=== PATIENT | female | born 1995 | race Hispanic/Latino ===

== ENCOUNTER 2024-06-09 02:24 | Emergency (ER) | payer BC, SELFPAY ==
[2024-06-09 02:25] VITALS: BMI 31.8
[2024-06-09 02:26] VITALS: BP 157/101
[2024-06-09 02:58] VITALS: BP 130/92
--- NOTE | 2024-06-09 05:18 | ED.GENMED ---
History of Present Illness
General
Chief Complaint: Allergic Reaction
Source: patient
Exam Limitations: none
Time Seen by Provider: 06/09/24 05:05
Nursing documentation reviewed up to this point in time: agreed with
History of Present Illness
History of Present Illness:
This is a 29-year-old female with no significant past medical history complains of generalized hives located to her anterior neck that she first noticed yesterday morning upon waking. She received a facial the day prior and believes that the
patient was the cause for the hives. She was evaluated at urgent care yesterday and prescribed a Medrol Dosepak and told to take Benadryl. She admits that Benadryl temporized her hives but they continue to recur and now seem to be spreading to her
upper chest, upper back. She complains of moderate itching. She also noted dry throat and felt that her throat may be feeling thicker. She denies cough nor shortness of breath but is concerned for possible wheezing. No prior history of asthma.
No abdominal pain, no nausea nor vomiting.
She took Benadryl 50 mg prior to arrival and now admits to moderate improvement in hives but not completely resolved.
Past History
Past History
ED Past Medical History: None
ED Past Surgical History: None
Social History
Tobacco: Non-smoker
Personal:
Living: with family
Employment: Employed
Family History
Family History: Other (Noncontributory)
Phy Exam
Physical Exam
Physical Exam:
GENERAL: 29-year-old female appears her stated age, awake and alert, pleasant, appears in no acute distress. is accompanying.
EYE: anicteric
NECK: Supple, nontender, no meningismus, no significant adenopathy.
ENT: posterior pharynx is clear, oral mucosa is moist. TM clear b/l, nares patent.
CARDIAC: Regular rate and rhythm. no murmur.
LUNGS: Clear breath sounds bilaterally, no acute respiratory distress, no wheezes/rales/rhonchi
ABDOMEN: Soft, nondistended, without focal tenderness, no r/g, no cvat. normoactive BS.
NEUROLOGICAL: Alert and oriented x3, no focal neuro deficits. Gait is kidd and steady.
SKIN: Warm and dry, normal color, skin intact. Few urticarial eruptions primarily noted anterior neck as well as a few scattered urticaria to the upper back and superior upper chest.
MUSCULOSKELETAL: No C/C/E. peripheral pulses are full and equal b/l. No palpable tenderness.
PSYCH: Normal and appropriate interaction.
Course
Orders/Labs/Results
Orders:
Orders
06/09/24 05:17
Dexamethasone Sod Phosphate [Decadron] 10 mg IV NOW STA
Diphenhydramine [Benadryl] 25 mg IV NOW STA
Vital Signs
Initial and Last Documented VS:
Initial Vital Signs
Temp Pulse Resp BP Pulse Ox
97.7 F 87 18 157/101 100
06/09/24 02:26 06/09/24 02:26 06/09/24 02:26 06/09/24 02:26 06/09/24 02:26
Last Documented Vital Signs
Temp Pulse Resp BP Pulse Ox
97.7 F 87 20 127/81 100
06/09/24 02:26 06/09/24 05:34 06/09/24 05:34 06/09/24 05:34 06/09/24 05:34
MDM/Problems Addressed
Differential Diagnosis Includes:
Patient presents with acute allergic reaction, urticaria primarily to her neck, upper back and upper chest that began yesterday morning.
Urticaria has been temporized by Benadryl and Medrol Dosepak but recurrent and worsening.
Nothing in history nor exam to suggest anaphylactic/anaphylactoid symptoms.
Urticaria is improving with an oral dose of Benadryl.
Will give additional IV dose of Benadryl as well as IV dose of Decadron and recommend we increase her dose of prednisone with lengthier taper over the next week.
I also recommend she initiated daily antihistamine such as Zyrtec or Claritin once daily over the next week and along with this if hives recur she can continue to take Benadryl 50 mg every 6 hours as needed.
Encouraged to avoid contact with similar facial products in the future as I suspect this was cause for somewhat focal urticarial reaction.
Follow-up with PCP for recheck.
*Pulse Oximetry
Patient hypoxic: no
*Critical Care Note
Total Time (30-74mins, 75-104mins- exclusive of procedures): Not Applicable
ED Attending Note
-
Portions of this chart may have been created with voice recognition software.� Occasional wrong word or��sound alike� substitutions may have occurred due to the inherent limitations of voice recognition software.
Discharge Plan
Departure
Patient Disposition: Home (Routine Discharge)
Date of Disposition: 06/09/24
Time of Disposition: 05:18
Patient with high blood pressure during this ER visit?: Yes
Condition: Good
Discharge Problem:
Acute allergic reaction
Instructions: Hives (DC)
Prescriptions:
New
prednisone 10 mg Tablet
See Rx Instructions .ROUTE .COMPLEX Qty: 30 0RF
Rx Instructions:
Take By Mouth:
40 mg daily x3 days, 30 mg daily x3 days,
20 mg daily x3 days, 10 mg daily x3 days.
Referrals:
NONE,* [Family Provider] - Call in 1-3 days for appt
Activity Restrictions/Additional Instructions:
Start Zyrtec 10 mg daily for at least the next 7 days. Along with Zyrtec, if hives recur you may take Benadryl 50 mg every 6 hours as needed.
Avoid contact with similar facial products in the future as I suspect this is cause for allergic reaction.
Interventions
Interventions:
*Risk Screen - Suicide Last Done: 06/09/24 02:26
*General Assessment Last Done: 06/09/24 02:26
*Neglect/Abuse Screening Last Done: 06/09/24 02:26
ED- Fall Risk Assessment Last Done: 06/09/24 03:11
*ED COVID-19 Vaccine History Last Done: 06/09/24 05:34
*Nursing Disposition Last Done: 06/09/24 05:34
ED- Cardiac Assessment Last Done: 06/09/24 03:11
ED- Pulmonary Assessment Last Done: 06/09/24 03:11
ED-Skin Assessment Last Done: 06/09/24 03:11
Discharge Date and Time
Discharge Date/Time: 06/09/24 05:36
Print Language: ALBAN[place]
[2024-06-09] MEDS: BENADRYL 25 MG IV (05:25)
[2024-06-09] MEDS: DECADRON 10 MG IV (05:25)
[2024-06-09 05:34] VITALS: BP 127/81
== END 2024-06-09 05:36 | disposition home or self-care (01) ==
LOC: EMR 02:24
PROVIDERS: EMERGENCY PHYSICIAN Emergency Medicine
DX: T78.40XA Allergy, unspecified, initial encounter (principal); L50.0 Allergic urticaria; X58.XXXA Exposure to other specified factors, initial encounter
CPT/HCPCS: 99284; 96374; 96375